=== PATIENT | female | born 1990 | race Caucasian/White ===

== ENCOUNTER 2019-03-04 14:41 | Emergency (ER) | payer OTHER ==
[~2019-03-04] VITALS: Ht 162.6 cm; Wt 83.9 kg
[2019-03-04 15:30] LABS: ABSOLUTE NEUTROPHILS 5.5 thou/uL (1.4-8.2); BASOPHILS 0.7 % (0.0-2.0); EOSINOPHILS 2.7 % (0.0-3.0); HEMATOCRIT 38.2 % (37.0-47.0); HEMOGLOBIN 12.9 gm/dL (12.0-15.0); LYMPHOCYTES 23.1 % (24.0-44.0); MCH 28.6 pg (26.0-34.0); MCHC 33.7 g/dL (28.0-37.0); MCV 85.1 fL (80.0-100.0); MONOCYTES 5.6 % (1.0-8.0); PLATELET COUNT 367 thou/uL (150-400); POLYS 67.9 % (36.0-66.0); RBC 4.49 mil/uL (4.20-5.00); RDW 13.3 % (10.5-14.5); WBC 8.1 thou/uL (4.0-11.0)
[2019-03-04 15:35] LABS: CALCIUM 9.1 mg/dL (8.5-10.1); CREATININE 0.9 mg/dL (0.6-1.0); POTASSIUM 3.8 mmol/L (3.5-5.1)
[2019-03-04 15:41] LABS: TOTAL BILIRUBIN 0.4 mg/dL (<0.1-1.0); TOTAL PROTEIN 7.8 g/dL (6.4-8.2)
[2019-03-04 16:40] LABS: URINE BILIRUBIN NEGATIVE (Negative); URINE BLOOD 3+ (Negative); URINE CLARITY CLEAR; URINE COLOR YELLOW; URINE GLUCOSE-RANDOM* NEGATIVE (Negative); URINE KETONES NEGATIVE (Negative); URINE LEUKOCYTES-REFLEX NEGATIVE (Negative); URINE NITRITE-REFLEX NEGATIVE (Negative); URINE PROTEIN (DIPSTICK) NEGATIVE (Negative); URINE UROBILINOGEN 0.2 E.U./dl (0.2-1.0)
[2019-03-04 16:51] LABS: BACTERIA-REFLEX None Seen /HPF (None Seen); CASTS None Seen /LPF (None Seen); CRYSTALS None Seen /LPF (None Seen); SQUAMOUS None Seen /LPF (0-3); URINE RBC 3-10 Few /HPF (0-2)
[2019-03-04 16:52] LABS: URINE WBC-REFLEX None Seen /HPF (0-5)
[2019-03-04] MEDS ORDERED: IBUPROFEN 800800 M1 PO (18:14)
[2019-03-04 18:24] VITALS: BP 103/72
== END 2019-03-04 18:30 | disposition home or self-care (01) ==
LOC: ER 14:41
PROVIDERS: Emergency Medicine
DX: R10.2 Pelvic and perineal pain (principal); R10.32 Left lower quadrant pain; R10.31 Right lower quadrant pain; F41.0 Panic disorder [episodic paroxysmal anxiety]; Z88.5 Allergy status to narcotic agent; Z91.041 Radiographic dye allergy status; Z87.442 Personal history of urinary calculi; Z90.10 Acquired absence of unspecified breast and nipple